=== PATIENT | female | born 1965 | race African-American/Black ===

== ENCOUNTER 2017-07-12 07:24 | Emergency (ER) | payer BC, MEDICAID ==
[~2017-07-12] VITALS: Ht 162.6 cm; Wt 114.0 kg
[~2017-07-12 07:24] MED LIST: ASPI-1159 PO; BENA20TA3 PO; CALC500T6 PO; GABA-529 PO; LORA2TAB2 PO; ZOLP5TAB2 PO
[2017-07-12] MEDS ORDERED: ONDANSETRON HCL 4MG/2ML VIAL IV ONE (08:00)
[2017-07-12] MEDS ORDERED: MORPHINE SULFATE 4 MG/ML CPJ (NOT FOR IM USE) IV ONE (08:00)
[2017-07-12 08:39] LABS: BASOPHILS % 0.3 % (0.0-2.0); EOSINOPHILS % 1.5 % (0.0-5.0); HEMATOCRIT. 30.7 % (36.0-48.0); HEMOGLOBIN. 9.8 g/dL (12.0-16.0); LYMPHOCYTES % 12.2 % (20.0-50.0); MEAN CORPUSCULAR VOLUME 97.1 fL (81.0-99.0); MEAN PLATELET VOLUME 9.6 fl (7.4-10.4); MONOCYTES % 6.9 % (2.0-8.0); NEUTROPHILS % 79.1 % (40.0-76.0); PLATELET 144 x1000/uL (130-400); RED BLOOD CELL COUNT 3.16 mill/uL (4.2-5.4); RED CELL DISTRIBUTION WIDTH 19.3 % (11.6-14.6)
[2017-07-12 08:42] LABS: CARBON DIOXIDE 25 mEq/L (21-32); CHLORIDE 104 mEq/L (98-107)
[2017-07-12] MEDS ORDERED: ONDANSETRON 4MG ODT PO ONE (10:00)
[2017-07-12] MEDS ORDERED: OXYCODONE HCL/ACETAMINOPHEN 5/325MG TABLET PO ONE (10:00)
[2017-07-12 13:50] VITALS: BP 150/52
== END 2017-07-12 14:42 | disposition home or self-care (01) ==
LOC: ER 07:35
DX: R10.31 Right lower quadrant pain (principal); I11.9 Hypertensive heart disease without heart failure; J44.9 Chronic obstructive pulmonary disease, unspecified; Z99.2 Dependence on renal dialysis; Z86.73 Personal history of transient ischemic attack (TIA), and cerebral infarction without residual deficits; Z79.82 Long term (current) use of aspirin; Z88.0 Allergy status to penicillin
CPT/HCPCS: 36415; 74176; 76705; 80053; 85025; 99285; Q0162; Z7610

== ENCOUNTER 2017-12-04 09:28 | Emergency (ER) | payer BC, MEDICAID ==
[~2017-12-04] VITALS: Ht 167.6 cm; Wt 90.0 kg
[2017-12-04] MEDS ORDERED: METHYLPREDNISOLONE SOD SUCC 125 MG/2 ML VIAL IV STA (09:46)
[2017-12-04] MEDS ORDERED: ALBUTEROL (0.083%) 2.5MG/3ML NEB HHN STA (09:46)
[2017-12-04] MEDS ORDERED: IPRATROPIUM BROMIDE (0.02%) 0.5MG/2.5ML NEB HHN STA (09:46)
[2017-12-04 10:12] LABS: BASOPHILS % 0.4 % (0.0-2.0); HEMATOCRIT. 37.6 % (36.0-48.0); HEMOGLOBIN. 12.2 g/dL (12.0-16.0); LYMPHOCYTES % 16.1 % (20.0-50.0); MEAN CORPUSCULAR HEMOGLOBIN 31.8 pg (28.0-32.0); MEAN PLATELET VOLUME 9.9 fl (7.4-10.4); MONOCYTES % 5.6 % (2.0-8.0); NEUTROPHILS % 76.9 % (40.0-76.0); PLATELET 142 x1000/uL (130-400); RED BLOOD CELL COUNT 3.84 mill/uL (4.2-5.4); RED CELL DISTRIBUTION WIDTH 20.1 % (11.6-14.6)
[2017-12-04 10:22] LABS: PROTHROMBIN TIME 10.3 sec (9.4-11.6)
[2017-12-04 10:30] LABS: CHLORIDE 101 mEq/L (98-107); TROPONIN I < 0.02 ng/mL (0.00-0.04)
[2017-12-04] MEDS ORDERED: MORPHINE SULFATE 2 MG/ML CPJ (NOT FOR IM USE) IV ONE (13:00)
[2017-12-04] MEDS ORDERED: MORPHINE SULFATE 4 MG/ML CPJ (NOT FOR IM USE) IV ONE (13:50)
[2017-12-04 15:45] VITALS: BP 137/75
== END 2017-12-04 16:03 | disposition home or self-care (01) ==
LOC: ER 09:38
DX: R05 Cough (principal); R09.89 Other specified symptoms and signs involving the circulatory and respiratory systems; J44.9 Chronic obstructive pulmonary disease, unspecified; I12.0 Hypertensive chronic kidney disease with stage 5 chronic kidney disease or end stage renal disease; N18.6 End stage renal disease; Z79.82 Long term (current) use of aspirin; Z86.73 Personal history of transient ischemic attack (TIA), and cerebral infarction without residual deficits; Z99.2 Dependence on renal dialysis; Z88.0 Allergy status to penicillin; Z88.8 Allergy status to other drugs, medicaments and biological substances
CPT/HCPCS: 36415; 71045; 80053; 83735; 83880; 84484; 85025; 85610; 93005; 94644; 96374; 99285; J2270; J2930; J7611; Z7610

== ENCOUNTER 2018-02-13 12:38 | Emergency (ER) | payer BC, MEDICAID ==
[~2018-02-13] VITALS: Ht 162.6 cm; Wt 76.0 kg
[2018-02-13] MEDS ORDERED: ACETAMINOPHEN 500MG TABLET PO ONE (13:45)
[2018-02-13 14:49] LABS: BASOPHILS % 0.2 % (0.0-2.0); EOSINOPHILS % 2.6 % (0.0-5.0); HEMATOCRIT. 36.8 % (36.0-48.0); HEMOGLOBIN. 12.5 g/dL (12.0-16.0); LYMPHOCYTES % 19.7 % (20.0-50.0); MEAN CORPUSCULAR HEMOGLOBIN 33.1 pg (28.0-32.0); MEAN CORPUSCULAR VOLUME 97.6 fL (81.0-99.0); MEAN PLATELET VOLUME 10.4 fl (7.4-10.4); MONOCYTES % 5.5 % (2.0-8.0); PLATELET 156 x1000/uL (130-400); RED BLOOD CELL COUNT 3.77 mill/uL (4.2-5.4)
[2018-02-13 20:00] VITALS: BP 162/75
== END 2018-02-13 20:12 | disposition home or self-care (01) ==
LOC: ER 12:47
DX: R44.1 Visual hallucinations (principal); I12.0 Hypertensive chronic kidney disease with stage 5 chronic kidney disease or end stage renal disease; N18.6 End stage renal disease; J44.9 Chronic obstructive pulmonary disease, unspecified; Z99.2 Dependence on renal dialysis; Z79.82 Long term (current) use of aspirin; Z88.0 Allergy status to penicillin
CPT/HCPCS: 36415; 71045; 80048; 85025; 99285

== ENCOUNTER 2018-07-15 23:10 | Inpatient (IN) | payer BC, MEDICAID ==
[~2018-07-15] VITALS: Ht 175.3 cm; Wt 133.6 kg
[~2018-07-15 23:10] MED LIST changes: +BENA20TA10 PO; -BENA20TA3 PO
[2018-07-16] MEDS ORDERED: MORPHINE SULFATE 4 MG/ML CPJ (NOT FOR IM USE) IV STA (01:33)
[2018-07-16] MEDS ORDERED: ASPIRIN 81MG TABLET PO ONE (01:45)
[2018-07-16 02:09] LABS: BASOPHILS % 0.9 % (0.0-2.0); EOSINOPHILS % 1.1 % (0.0-5.0); HEMATOCRIT. 34.7 % (36.0-48.0); HEMOGLOBIN. 11.2 g/dL (12.0-16.0); LYMPHOCYTES % 16.1 % (20.0-50.0); MEAN CORPUSCULAR HEMOGLOBIN 33.5 pg (28.0-32.0); MEAN CORPUSCULAR VOLUME 103.8 fL (81.0-99.0); MEAN PLATELET VOLUME 10.1 fl (7.4-10.4); MONOCYTES % 9.2 % (2.0-8.0); NEUTROPHILS % 72.7 % (40.0-76.0); PLATELET 181 x1000/uL (130-400); RED BLOOD CELL COUNT 3.34 mill/uL (4.2-5.4)
[2018-07-16 02:14] LABS: CHLORIDE 104 mEq/L (98-107)
[2018-07-16 02:20] LABS: ETHANOL BLOOD < 10 mg/dL
[2018-07-16 02:24] LABS: CREATINE KINASE 80 IU/L (26-192)
[2018-07-16 02:35] LABS: PROTHROMBIN TIME 10.3 sec (9.1-11.1)
[2018-07-16] MEDS ORDERED: MORPHINE SULFATE 2 MG/ML CPJ (NOT FOR IM USE) IV ONE (04:45)
[2018-07-16] MEDS ORDERED: MAGNESIUM/ALUMINUM HYDROXIDE/SIMETHICONE 30ML UDC PO PRN (07:45)
[2018-07-16] MEDS ORDERED: ACETAMINOPHEN 325MG TABLET PO PRN (07:45)
[2018-07-16] MEDS ORDERED: NITROGLYCERIN 0.4MG TABLET SL SL PRN (07:45)
[2018-07-16] MEDS ORDERED: CLONIDINE 0.1MG TABLET PO PRN (07:45)
[2018-07-16] MEDS ORDERED: TRAMADOL 50MG TABLET PO PRN (07:45)
[2018-07-16] MEDS ORDERED: DOCUSATE SODIUM 100MG CAPSULE PO PRN (07:45)
[2018-07-16] MEDS ORDERED: ONDANSETRON HCL 4MG/2ML INJ IV PRN (07:45)
[2018-07-16] MEDS ORDERED: GUAIFENESIN 200MG/10ML SUGAR FREE UDC PO PRN (07:45)
[2018-07-16] MEDS ORDERED: [UNRECOGNIZED DRUG - OTHER] PO (09:32)
[2018-07-16] MEDS ORDERED: B50 MT (09:34)
[2018-07-16] MEDS ORDERED: FAMO-135 MT (09:35)
[2018-07-16] MEDS ORDERED: SERT100T MT (09:46)
[2018-07-16] MEDS ORDERED: TRAZ-213 MT (09:46)
[2018-07-16] MEDS ORDERED: LOXA25CA MT (09:46)
[2018-07-16] MEDS: ASPIRIN 325MG EC TABLET PO SCH ×2 (09:49→09:59)
[2018-07-16] MEDS: FAMOTIDINE 20MG TABLET PO SCH ×2 (09:49→09:59)
[2018-07-16] MEDS: FOLIC ACID/VITAMIN B COMP W-C TABLET PO SCH ×2 (09:49→10:00)
[2018-07-16] MEDS: SEVELAMER CARBONATE 800 MG TABLET PO SCH ×3 (09:49→17:16)
[2018-07-16] MEDS: ENOXAPARIN 40MG/0.4ML SYR SUBCUT SCH ×2 (09:51→10:00)
[2018-07-16 10:05] VITALS: BP 113/49
[2018-07-16 12:00] VITALS: BP 91/53
[2018-07-16] MEDS: DIPHENHYDRAMINE 50MG/ML VIAL IV PRN ×2 (13:08→17:15)
[2018-07-16] MEDS ORDERED: HYDR-3280 MT (13:29)
[2018-07-16] MEDS: LORAZEPAM 2MG/ML CPJ IV PRN (14:35)
[2018-07-16 16:00] VITALS: BP 118/51
[2018-07-16 16:14] LABS: CREATINE KINASE 58 IU/L (26-192)
[2018-07-16 16:15] LABS: CREATINE KINASE MB FRACTION 1.6 ng/mL (0.5-3.6)
[2018-07-16] MEDS: DEXAMETHASONE 4MG/ML 1ML VIAL IV SCH ×2 (17:15→23:08)
[2018-07-16] MEDS ORDERED: DEXAMETHASONE 4MG/ML 1ML VIAL IV SCH (18:00)
[2018-07-16 20:00] VITALS: BP 134/63
[2018-07-16 23:38] LABS: CREATINE KINASE 55 IU/L (26-192)
[2018-07-16 23:39] LABS: CREATINE KINASE MB FRACTION 1.6 ng/mL (0.5-3.6)
[2018-07-17] VITALS: BP 125/65
[2018-07-17 04:00] VITALS: BP 111/55
[2018-07-17] MEDS: DEXAMETHASONE 4MG/ML 1ML VIAL IV SCH ×3 (06:45→17:57)
[2018-07-17 08:00] VITALS: BP 161/80
[2018-07-17] MEDS: FOLIC ACID/VITAMIN B COMP W-C TABLET PO SCH ×2 (08:59→09:00)
[2018-07-17] MEDS: DIPHENHYDRAMINE 50MG/ML VIAL IV PRN ×3 (08:59→19:44)
[2018-07-17] MEDS: SEVELAMER CARBONATE 800 MG TABLET PO SCH ×3 (09:10→17:43)
[2018-07-17 12:00] VITALS: BP 153/76
[2018-07-17] MEDS: LORAZEPAM 2MG/ML CPJ IV PRN ×2 (12:13→20:29)
[2018-07-17] MEDS ORDERED: BISACODYL 10MG SUPP PR NR (15:35)
[2018-07-17 16:00] VITALS: BP 163/77
[2018-07-17] MEDS: DOCUSATE SODIUM 100MG CAPSULE PO SCH ×2 (17:44→17:45)
[2018-07-17] MEDS: LACTULOSE 20G/30ML UDC PO SCH ×2 (17:44→20:06)
[2018-07-17] MEDS: MORPHINE SULFATE 4 MG/ML CPJ (NOT FOR IM USE) IV PRN (17:45)
[2018-07-17 20:00] VITALS: BP 136/62
[2018-07-17] MEDS: POLYETHYLENE GLYCOL 3350 (17GM) 1 DOSE PACK PO SCH (20:06)
[2018-07-18] VITALS: BP 153/69
[2018-07-18] MEDS: DIPHENHYDRAMINE 50MG/ML VIAL IV PRN ×4 (03:51→21:33)
[2018-07-18 04:00] VITALS: BP 109/61
[2018-07-18] MEDS: MORPHINE SULFATE 4 MG/ML CPJ (NOT FOR IM USE) IV PRN ×4 (04:20→23:10)
[2018-07-18] MEDS: DEXAMETHASONE 4MG/ML 1ML VIAL IV SCH ×4 (05:01→18:13)
[2018-07-18] MEDS: LORAZEPAM 2MG/ML CPJ IV PRN ×3 (05:01→21:44)
[2018-07-18 08:00] VITALS: BP 156/87
[2018-07-18] MEDS: BISACODYL 10MG SUPP PR SCH (08:56)
[2018-07-18] MEDS: FOLIC ACID/VITAMIN B COMP W-C TABLET PO SCH (08:56)
[2018-07-18] MEDS: LACTULOSE 20G/30ML UDC PO SCH ×4 (08:56→21:44)
[2018-07-18] MEDS: SEVELAMER CARBONATE 800 MG TABLET PO SCH ×3 (08:56→18:13)
[2018-07-18] MEDS: FAMOTIDINE 20MG TABLET PO SCH (08:56)
[2018-07-18] MEDS: DOCUSATE SODIUM 100MG CAPSULE PO SCH ×2 (08:56→18:13)
[2018-07-18] MEDS: ENOXAPARIN 40MG/0.4ML SYR SUBCUT SCH (08:57)
[2018-07-18 12:00] VITALS: BP 131/58
[2018-07-18 16:00] VITALS: BP 153/59
[2018-07-18 20:00] VITALS: BP 134/78
[2018-07-18] MEDS: POLYETHYLENE GLYCOL 3350 (17GM) 1 DOSE PACK PO SCH (21:31)
[2018-07-19] VITALS: BP 159/62
[2018-07-19 04:00] VITALS: BP 126/55
[2018-07-19] MEDS: DEXAMETHASONE 4MG/ML 1ML VIAL IV SCH ×4 (07:01→19:08)
[2018-07-19 07:26] LABS: HEMATOCRIT. 33.5 % (36.0-48.0); HEMOGLOBIN. 10.8 g/dL (12.0-16.0); MEAN CORPUSCULAR HEMOGLOBIN 33.7 pg (28.0-32.0); MEAN CORPUSCULAR VOLUME 104.6 fL (81.0-99.0); MEAN PLATELET VOLUME 10.7 fl (7.4-10.4); PLATELET 139 x1000/uL (130-400)
[2018-07-19 07:41] LABS: AMMONIA 39 uMol/L (<32)
[2018-07-19 08:00] VITALS: BP 140/76
[2018-07-19 08:12] LABS: VITAMIN B12 SERUM >2000 pg/mL pg/mL (211-911)
[2018-07-19 08:17] LABS: PHOSPHORUS 8.2 mg/dL (2.5-4.9)
[2018-07-19] MEDS: ENOXAPARIN 40MG/0.4ML SYR SUBCUT SCH (09:00)
[2018-07-19] MEDS: DIPHENHYDRAMINE 50MG/ML VIAL IV PRN (09:30)
[2018-07-19 10:00] LABS: FERRITIN 632 ng/mL (10-291)
[2018-07-19] MEDS: FOLIC ACID/VITAMIN B COMP W-C TABLET PO SCH (10:37)
[2018-07-19] MEDS: SEVELAMER CARBONATE 800 MG TABLET PO SCH ×3 (10:37→18:59)
[2018-07-19] MEDS: FAMOTIDINE 20MG TABLET PO SCH (10:38)
[2018-07-19] MEDS: DOCUSATE SODIUM 100MG CAPSULE PO SCH ×2 (10:38→18:59)
[2018-07-19] MEDS: BISACODYL 10MG SUPP PR SCH (10:38)
[2018-07-19] MEDS: MORPHINE SULFATE 4 MG/ML CPJ (NOT FOR IM USE) IV PRN ×2 (10:42→19:33)
[2018-07-19 12:00] VITALS: BP 106/73
[2018-07-19] MEDS ORDERED: HEPARIN 1000 UNITS/ML 10ML ONE (13:19)
[2018-07-19] MEDS: LACTULOSE 20G/30ML UDC PO SCH ×2 (14:00→21:17)
[2018-07-19] MEDS: LORAZEPAM 2MG/ML CPJ IV PRN ×2 (14:55→21:33)
[2018-07-19 16:00] VITALS: BP 138/74
[2018-07-19] MEDS ORDERED: HEPARIN SODIUM 1,000 UNIT/1ML VIAL IV NR (18:45)
[2018-07-19] MEDS: POLYETHYLENE GLYCOL 3350 (17GM) 1 DOSE PACK PO SCH (21:17)
[2018-07-19] MEDS: ZOLPIDEM TARTRATE 5MG TABLET PO PRN (23:58)
[2018-07-20] VITALS (15 sets, daily range): BP systolic 118–155; BP diastolic 54–94
[2018-07-20] MEDS: DIPHENHYDRAMINE 50MG/ML VIAL IV PRN ×2 (02:34→13:25)
[2018-07-20 06:13] LABS: PLATELET ESTIMATE NORMAL
[2018-07-20] MEDS: SEVELAMER CARBONATE 800 MG TABLET PO SCH ×3 (08:10→18:10)
[2018-07-20] MEDS: ENOXAPARIN 40MG/0.4ML SYR SUBCUT SCH (08:37)
[2018-07-20] MEDS: MORPHINE SULFATE 4 MG/ML CPJ (NOT FOR IM USE) IV PRN ×2 (08:38→18:14)
[2018-07-20] MEDS: BISACODYL 10MG SUPP PR SCH (08:38)
[2018-07-20] MEDS: DOCUSATE SODIUM 100MG CAPSULE PO SCH ×2 (08:39→17:00)
[2018-07-20] MEDS: FOLIC ACID/VITAMIN B COMP W-C TABLET PO SCH (08:39)
[2018-07-20] MEDS: FAMOTIDINE 20MG TABLET PO SCH (08:39)
[2018-07-20 09:55] LABS: AMMONIA 17 uMol/L (<32)
[2018-07-20 10:01] LABS: CHLORIDE 93 mEq/L (98-107)
[2018-07-20 10:11] LABS: T4 FREE 0.47 ng/dL (0.76-1.46)
[2018-07-20] MEDS ORDERED: SODIUM BICARBONATE 4% (2.4MEQ) 5ML VIAL IV ONE (10:35)
[2018-07-20] MEDS ORDERED: LIDOCAINE HCL 1% 20ML VIAL (Pyxis) INJ ONE (10:35)
[2018-07-20] MEDS ORDERED: IOHEXOL-300 100 ML BOTTLE ONE (10:35)
[2018-07-20] MEDS ORDERED: HEPARIN 1000 UNITS/ML 10ML ONE (10:36)
[2018-07-20] MEDS ORDERED: CLINDAMYCIN 600MG PREMIX 50 ML IV ONE (10:45)
[2018-07-20] MEDS ORDERED: FENTANYL CITRATE/PF 50MCG/ML 2ML VIAL ONE (10:58)
[2018-07-20] MEDS ORDERED: FENTANYL CITRATE/PF 50MCG/ML 2ML VIAL IV ONE (11:15)
[2018-07-20] MEDS: LORAZEPAM 2MG/ML CPJ IV PRN ×2 (12:06→21:15)
[2018-07-20] MEDS: LACTULOSE 20G/30ML UDC PO SCH (13:19)
[2018-07-20] MEDS: DEXAMETHASONE 4MG/ML 1ML VIAL IV SCH ×3 (13:20→18:00)
[2018-07-20] MEDS: POLYETHYLENE GLYCOL 3350 (17GM) 1 DOSE PACK PO SCH (21:15)
[2018-07-21] VITALS: BP 125/66
[2018-07-21] MEDS: DEXAMETHASONE 4MG/ML 1ML VIAL IV SCH ×4 (00:09→19:39)
[2018-07-21] MEDS: ZOLPIDEM TARTRATE 5MG TABLET PO PRN (00:09)
[2018-07-21 04:00] VITALS: BP 132/72
[2018-07-21 08:00] VITALS: BP 135/73
[2018-07-21] MEDS: BISACODYL 10MG SUPP PR SCH (09:00)
[2018-07-21] MEDS: ENOXAPARIN 40MG/0.4ML SYR SUBCUT SCH (09:00)
[2018-07-21] MEDS: MORPHINE SULFATE 4 MG/ML CPJ (NOT FOR IM USE) IV PRN (10:30)
[2018-07-21] MEDS: FAMOTIDINE 20MG TABLET PO SCH (10:31)
[2018-07-21] MEDS: DOCUSATE SODIUM 100MG CAPSULE PO SCH ×2 (10:31→19:39)
[2018-07-21] MEDS: FOLIC ACID/VITAMIN B COMP W-C TABLET PO SCH (10:31)
[2018-07-21] MEDS: LACTULOSE 20G/30ML UDC PO SCH (10:31)
[2018-07-21] MEDS: SEVELAMER CARBONATE 800 MG TABLET PO SCH ×3 (10:34→18:10)
[2018-07-21 12:00] VITALS: BP 131/46
[2018-07-21] MEDS: DIPHENHYDRAMINE 50MG/ML VIAL IV PRN ×2 (14:33→19:39)
[2018-07-21 16:00] VITALS: BP 129/75
[2018-07-21 20:00] VITALS: BP 127/60
[2018-07-21] MEDS: LORAZEPAM 2MG/ML CPJ IM PRN (20:58)
[2018-07-21] MEDS: POLYETHYLENE GLYCOL 3350 (17GM) 1 DOSE PACK PO SCH (20:58)
[2018-07-21] MEDS ORDERED: ZOLPIDEM TARTRATE 5MG TABLET PO PRN (23:00)
[2018-07-22] VITALS: BP 147/68
[2018-07-22] MEDS: DIPHENHYDRAMINE 50MG/ML VIAL IV PRN ×3 (00:42→20:06)
[2018-07-22] MEDS: DEXAMETHASONE 4MG/ML 1ML VIAL IV SCH ×4 (00:42→17:48)
[2018-07-22] MEDS: MORPHINE SULFATE 4 MG/ML CPJ (NOT FOR IM USE) IV PRN ×2 (03:17→11:28)
[2018-07-22 06:51] VITALS: BP 157/81
[2018-07-22 08:00] VITALS: BP 139/71
[2018-07-22] MEDS: LACTULOSE 20G/30ML UDC PO SCH ×2 (08:30→17:48)
[2018-07-22] MEDS: SEVELAMER CARBONATE 800 MG TABLET PO SCH ×3 (08:31→17:48)
[2018-07-22] MEDS: ENOXAPARIN 40MG/0.4ML SYR SUBCUT SCH (08:31)
[2018-07-22] MEDS: FOLIC ACID/VITAMIN B COMP W-C TABLET PO SCH (08:31)
[2018-07-22] MEDS: DOCUSATE SODIUM 100MG CAPSULE PO SCH ×2 (08:31→17:48)
[2018-07-22] MEDS: FAMOTIDINE 20MG TABLET PO SCH (08:31)
[2018-07-22] MEDS: BISACODYL 10MG SUPP PR SCH (08:34)
[2018-07-22] MEDS: LORAZEPAM 2MG/ML CPJ IM PRN (08:39)
[2018-07-22 12:00] VITALS: BP 153/70
[2018-07-22 16:00] VITALS: BP 149/64
[2018-07-22 20:00] VITALS: BP 122/66
[2018-07-22] MEDS: POLYETHYLENE GLYCOL 3350 (17GM) 1 DOSE PACK PO SCH (20:07)
[2018-07-23] VITALS: BP 122/74
[2018-07-23] MEDS: DEXAMETHASONE 4MG/ML 1ML VIAL IV SCH ×4 (00:29→18:14)
[2018-07-23 04:00] VITALS: BP 121/66
[2018-07-23 08:00] VITALS: BP 151/68
[2018-07-23] MEDS: LACTULOSE 20G/30ML UDC PO SCH ×2 (08:42→17:00)
[2018-07-23] MEDS: DOCUSATE SODIUM 100MG CAPSULE PO SCH ×2 (08:42→17:00)
[2018-07-23] MEDS: ENOXAPARIN 40MG/0.4ML SYR SUBCUT SCH (08:42)
[2018-07-23] MEDS: FOLIC ACID/VITAMIN B COMP W-C TABLET PO SCH (08:42)
[2018-07-23] MEDS: SEVELAMER CARBONATE 800 MG TABLET PO SCH ×3 (08:42→18:14)
[2018-07-23] MEDS: FAMOTIDINE 20MG TABLET PO SCH (08:42)
[2018-07-23] MEDS: MORPHINE SULFATE 4 MG/ML CPJ (NOT FOR IM USE) IV PRN ×3 (09:06→21:24)
[2018-07-23] MEDS: BISACODYL 10MG SUPP PR SCH ×2 (09:06→09:49)
[2018-07-23] MEDS: LEVOTHYROXINE SODIUM 25MCG TABLET PO SCH (10:59)
[2018-07-23 12:00] VITALS: BP 148/55
[2018-07-23 14:21] LABS: 25-HYDROXY VITAMIN D3 27 ng/mL (.)
[2018-07-23 16:00] VITALS: BP 122/50
[2018-07-23] MEDS: POLYETHYLENE GLYCOL 3350 (17GM) 1 DOSE PACK PO SCH (20:38)
[2018-07-23 23:56] VITALS: BP 154/50
[2018-07-24] MEDS: DEXAMETHASONE 4MG/ML 1ML VIAL IV SCH ×4 (00:49→19:33)
[2018-07-24 04:00] VITALS: BP 153/52
[2018-07-24] MEDS: MORPHINE SULFATE 4 MG/ML CPJ (NOT FOR IM USE) IV PRN ×3 (05:36→16:49)
[2018-07-24 08:00] VITALS: BP 131/78
[2018-07-24 08:25] LABS: FOLICLE STIMULATING HORMONE 5.8 mIU/mL (.); LUTEINIZING HORMONE 0.3 mIU/mL (.); PROLACTIN 272.8 ng/mL (4.8-23.3)
[2018-07-24] MEDS: BISACODYL 10MG SUPP PR SCH (09:00)
[2018-07-24] MEDS: ENOXAPARIN 40MG/0.4ML SYR SUBCUT SCH (09:41)
[2018-07-24] MEDS: FAMOTIDINE 20MG TABLET PO SCH (09:41)
[2018-07-24] MEDS: LEVOTHYROXINE SODIUM 25MCG TABLET PO SCH (09:41)
[2018-07-24] MEDS: LACTULOSE 20G/30ML UDC PO SCH ×2 (09:42→19:32)
[2018-07-24] MEDS: SEVELAMER CARBONATE 800 MG TABLET PO SCH ×3 (09:42→18:10)
[2018-07-24] MEDS: DOCUSATE SODIUM 100MG CAPSULE PO SCH ×2 (09:42→19:33)
[2018-07-24] MEDS: FOLIC ACID/VITAMIN B COMP W-C TABLET PO SCH (09:50)
[2018-07-24 12:00] VITALS: BP 170/79
[2018-07-24 16:00] VITALS: BP 138/51
[2018-07-24] MEDS ORDERED: HEPARIN SODIUM 1,000 UNIT/1ML VIAL IV NR (16:45)
[2018-07-24] MEDS: HYDROCODONE/ACETAMINOPHEN 10/325MG TABLET PO PRN (19:34)
[2018-07-24 20:00] VITALS: BP 146/53
[2018-07-24] MEDS: POLYETHYLENE GLYCOL 3350 (17GM) 1 DOSE PACK PO SCH (21:14)
[2018-07-24] MEDS: LORAZEPAM 2MG/ML CPJ IM PRN (21:14)
[2018-07-25] VITALS: BP 123/81
[2018-07-25] MEDS: DEXAMETHASONE 4MG/ML 1ML VIAL IV SCH ×4 (01:32→23:50)
[2018-07-25] MEDS: HYDROCODONE/ACETAMINOPHEN 10/325MG TABLET PO PRN (01:33)
[2018-07-25 04:00] VITALS: BP 132/78
[2018-07-25] MEDS: LEVOTHYROXINE SODIUM 25MCG TABLET PO SCH (06:41)
[2018-07-25 08:00] VITALS: BP 148/61
[2018-07-25] MEDS: SEVELAMER CARBONATE 800 MG TABLET PO SCH ×3 (10:11→18:18)
[2018-07-25] MEDS: LACTULOSE 20G/30ML UDC PO SCH ×2 (10:12→18:17)
[2018-07-25] MEDS: FOLIC ACID/VITAMIN B COMP W-C TABLET PO SCH (10:13)
[2018-07-25] MEDS: ENOXAPARIN 40MG/0.4ML SYR SUBCUT SCH (10:13)
[2018-07-25] MEDS: DOCUSATE SODIUM 100MG CAPSULE PO SCH ×2 (10:13→18:17)
[2018-07-25] MEDS: FAMOTIDINE 20MG TABLET PO SCH (10:14)
[2018-07-25] MEDS: BISACODYL 10MG SUPP PR SCH (10:15)
[2018-07-25 12:00] VITALS: BP 130/64
[2018-07-25] MEDS: DIPHENHYDRAMINE 50MG/ML VIAL IV PRN ×2 (13:19→19:43)
[2018-07-25 16:00] VITALS: BP 169/86
[2018-07-25] MEDS: POLYETHYLENE GLYCOL 3350 (17GM) 1 DOSE PACK PO SCH (19:44)
[2018-07-25] MEDS: MORPHINE SULFATE 4 MG/ML CPJ (NOT FOR IM USE) IV PRN (19:44)
[2018-07-25 20:00] VITALS: BP 142/72
[2018-07-25] MEDS: LORAZEPAM 2MG/ML CPJ IM PRN (23:55)
[2018-07-26] VITALS: BP 136/71
[2018-07-26 04:00] VITALS: BP 133/66
[2018-07-26] MEDS: MORPHINE SULFATE 4 MG/ML CPJ (NOT FOR IM USE) IV PRN ×2 (05:20→14:19)
[2018-07-26] MEDS: DEXAMETHASONE 4MG/ML 1ML VIAL IV SCH ×3 (05:20→16:41)
[2018-07-26] MEDS: LEVOTHYROXINE SODIUM 25MCG TABLET PO SCH (05:21)
[2018-07-26 08:00] VITALS: BP 112/70
[2018-07-26] MEDS: ENOXAPARIN 40MG/0.4ML SYR SUBCUT SCH (09:00)
[2018-07-26] MEDS: SEVELAMER CARBONATE 800 MG TABLET PO SCH ×3 (09:30→16:40)
[2018-07-26] MEDS: LACTULOSE 20G/30ML UDC PO SCH ×2 (09:30→16:41)
[2018-07-26] MEDS: DOCUSATE SODIUM 100MG CAPSULE PO SCH ×2 (09:30→16:41)
[2018-07-26] MEDS: BISACODYL 10MG SUPP PR SCH (09:30)
[2018-07-26] MEDS: FOLIC ACID/VITAMIN B COMP W-C TABLET PO SCH (09:30)
[2018-07-26] MEDS: FAMOTIDINE 20MG TABLET PO SCH (09:30)
[2018-07-26] MEDS ORDERED: NA PHOS,M-B/NA PHOS,DI-BA ENEMA 118ML PR ONE (10:00)
[2018-07-26] MEDS: SORBITOL 70% SOLN 30ML PO SCH ×2 (10:00→11:29)
[2018-07-26 12:00] VITALS: BP 147/57
[2018-07-26 13:04] LABS: HEMATOCRIT. 36.2 % (36.0-48.0); HEMOGLOBIN. 11.7 g/dL (12.0-16.0); MEAN CORPUSCULAR HEMOGLOBIN 32.4 pg (28.0-32.0); MEAN CORPUSCULAR VOLUME 100.3 fL (81.0-99.0); PLATELET 158 x1000/uL (130-400); RED BLOOD CELL COUNT 3.61 mill/uL (4.2-5.4); RED CELL DISTRIBUTION WIDTH 17.8 % (11.6-14.6)
[2018-07-26 13:15] LABS: INR 1.1; PROTHROMBIN TIME 10.9 sec (9.1-11.1)
[2018-07-26 13:17] LABS: PLATELET ESTIMATE NORMAL
[2018-07-26] MEDS: DIPHENHYDRAMINE 50MG/ML VIAL IV PRN ×2 (14:41→20:58)
[2018-07-26 16:00] VITALS: BP 156/63
[2018-07-26 20:13] VITALS: BP 133/58
[2018-07-26] MEDS ORDERED: MORPHINE SULFATE 4 MG/ML CPJ (NOT FOR IM USE) IV PRN (20:14)
[2018-07-26] MEDS: POLYETHYLENE GLYCOL 3350 (17GM) 1 DOSE PACK PO SCH (20:59)
[2018-07-27] VITALS (60 sets, daily range): BP systolic 97–166; BP diastolic 45–86
[2018-07-27] MEDS: DEXAMETHASONE 4MG/ML 1ML VIAL IV SCH ×4 (02:02→17:09)
[2018-07-27] MEDS: LORAZEPAM 2MG/ML CPJ IV PRN (02:02)
[2018-07-27] MEDS: LEVOTHYROXINE SODIUM 25MCG TABLET PO SCH (05:55)
[2018-07-27] MEDS: SEVELAMER CARBONATE 800 MG TABLET PO SCH ×3 (08:10→17:00)
[2018-07-27] MEDS ORDERED: THROMBIN (BOVINE) 5000 UNITS/VIAL TOP ONE ×2 (08:20→08:21)
[2018-07-27] MEDS ORDERED: NORMAL SALINE 0.9% 10 ML SYR ONE (08:20)
[2018-07-27] MEDS ORDERED: LIDOCAINE HCL/EPINEPHRINE 1%-EPI 1:100,000 20 ML VIAL ONE (08:20)
[2018-07-27] MEDS ORDERED: GELATIN SPONGE,COMPRESSED SZ 100 ONE (08:21)
[2018-07-27] MEDS ORDERED: BACITRACIN 50,000 UNITS/VIAL ONE (08:21)
[2018-07-27] MEDS: ENOXAPARIN 40MG/0.4ML SYR SUBCUT SCH (09:00)
[2018-07-27] MEDS: DOCUSATE SODIUM 100MG CAPSULE PO SCH ×2 (09:00→17:00)
[2018-07-27] MEDS: LACTULOSE 20G/30ML UDC PO SCH ×2 (09:00→17:00)
[2018-07-27] MEDS: BISACODYL 10MG SUPP PR SCH (09:00)
[2018-07-27] MEDS ORDERED: NEOSTIGMINE METHYLSULFATE 1MG/ML 10 ML VIAL ONE (09:08)
[2018-07-27] MEDS ORDERED: MIDAZOLAM HCL 2 MG/2 ML VIAL ONE (09:08)
[2018-07-27] MEDS ORDERED: GLYCOPYRROLATE 0.2 MG/ML 2ML VIAL ONE (09:08)
[2018-07-27] MEDS ORDERED: FENTANYL CITRATE/PF 50MCG/ML 2ML VIAL ONE (09:08)
[2018-07-27] MEDS ORDERED: ROCURONIUM BROMIDE 10MG/ML VIAL 5ML IV ONE (09:08)
[2018-07-27] MEDS ORDERED: SUCCINYLCHOLINE CHLORIDE 200MG/10ML IV ONE (09:35)
[2018-07-27] MEDS ORDERED: ETOMIDATE 2MG/ML 10ML VIAL IV ONE (09:35)
[2018-07-27] MEDS ORDERED: LABETALOL HCL 5MG/ML VIAL 20ML IV ONE (09:39)
[2018-07-27] MEDS ORDERED: CEFAZOLIN SODIUM 1000MG/VIAL ONE (10:05)
[2018-07-27] MEDS ORDERED: DEXAMETHASONE 4MG/ML 1ML VIAL ONE ×2 (10:06→10:42)
[2018-07-27] MEDS ORDERED: FENTANYL CITRATE/PF 50MCG/ML 2ML VIAL IV PRN (10:30)
[2018-07-27] MEDS ORDERED: HYDROMORPHONE HCL/PF 2MG/ML CPJ IV PRN (10:30)
[2018-07-27] MEDS ORDERED: MORPHINE SULFATE 4 MG/ML CPJ (NOT FOR IM USE) IV PRN (10:30)
[2018-07-27] MEDS ORDERED: ONDANSETRON HCL 4MG/2ML INJ IV PRN (10:30)
[2018-07-27] MEDS ORDERED: MEPERIDINE HCL/PF 25MG/ML CPJ IV PRN (10:30)
[2018-07-27] MEDS ORDERED: NICARDIPINE 100 MG in SODIUM CHLORIDE 0.9% 60 ML IV PRN (11:00)
[2018-07-27] MEDS: FOLIC ACID/VITAMIN B COMP W-C TABLET PO SCH (11:32)
[2018-07-27] MEDS: DEXT 5%/0.9% NACL 1,000 ML IV SCH (11:32)
[2018-07-27] MEDS: FAMOTIDINE 20MG TABLET PO SCH (11:32)
[2018-07-27] MEDS: PROPOFOL 10MG/ML 100ML 100 ML IV PRN ×3 (11:40→20:29)
[2018-07-27 13:54] LABS: BG BASE EXCESS -9.4 mmol/L (-2.0-2.0); BG CARBOXYHEMOGLOBIN 0.5 % (0.5-1.5); BG DEOXYHEMOGLOBIN 2.1 % (0.0-5.0); BG FRACTION INSPIRED OXYGEN 60; BG OXYGEN SATURATION 97.9 % (92.0-98.5); BG OXYHEMOGLOBIN 97.4 % (94.0-97.0); BG PCO2 27.9 mmHg (35.0-45.0); BG PEEP (cmH2O) 0 cmH2O; BG PH 7.347 (7.350-7.450); BG PO2 117.3 mmHg (75.0-100.0); BG SAMPLE SITE LEFT RADIAL; BG TIDAL VOLUME(mL) 600 mL; BG TOTAL HEMOGLOBIN 11.2 g/dL (12.0-18.0); BG VENT MODE VENT - A/C; BG VENT RATE 14 set
[2018-07-27] MEDS: BUDESONIDE 0.5MG/2ML NEB HHN SCH ×2 (14:39→20:46)
[2018-07-27] MEDS: POLYETHYLENE GLYCOL 3350 (17GM) 1 DOSE PACK PO SCH (20:29)
[2018-07-27] MEDS: MORPHINE SULFATE 4 MG/ML CPJ (NOT FOR IM USE) IV PRN (20:53)
[2018-07-28] VITALS (94 sets, daily range): BP systolic 89–139; BP diastolic 45–96
[2018-07-28] MEDS: DEXAMETHASONE 4MG/ML 1ML VIAL IV SCH ×5 (00:21→23:29)
[2018-07-28] MEDS: PROPOFOL 10MG/ML 100ML 100 ML IV PRN ×8 (01:19→22:34)
[2018-07-28] MEDS: MORPHINE SULFATE 4 MG/ML CPJ (NOT FOR IM USE) IV PRN ×3 (05:06→22:06)
[2018-07-28] MEDS: DEXT 5%/0.9% NACL 1,000 ML IV SCH (05:07)
[2018-07-28 06:18] LABS: HEMATOCRIT. 32.6 % (36.0-48.0); HEMOGLOBIN. 10.7 g/dL (12.0-16.0); MEAN CORPUSCULAR HEMOGLOBIN 33.2 pg (28.0-32.0); MEAN CORPUSCULAR VOLUME 101.4 fL (81.0-99.0); PLATELET 132 x1000/uL (130-400); RED BLOOD CELL COUNT 3.22 mill/uL (4.2-5.4)
[2018-07-28] MEDS: SEVELAMER CARBONATE 800 MG TABLET PO SCH ×3 (07:00→16:48)
[2018-07-28] MEDS: BUDESONIDE 0.5MG/2ML NEB HHN SCH ×2 (07:24→19:40)
[2018-07-28] MEDS: IPRATROPIUM/ALBUTEROL 0.5-3(2.5)MG/3ML NEB INH PRN ×4 (07:24→23:41)
[2018-07-28 07:27] LABS: BG CARBOXYHEMOGLOBIN 0.1 % (0.5-1.5); BG DEOXYHEMOGLOBIN 3.5 % (0.0-5.0); BG FRACTION INSPIRED OXYGEN 40; BG HCO3 ACT 18.9 mmol/L (22.0-26.0); BG METHEMOGLOBIN 0.3 % (0.0-1.5); BG OXYGEN SATURATION 96.5 % (92.0-98.5); BG OXYHEMOGLOBIN 96.1 % (94.0-97.0); BG PCO2 27.5 mmHg (35.0-45.0); BG PH 7.454 (7.350-7.450); BG PO2 91.9 mmHg (75.0-100.0); BG SAMPLE SITE RIGHT BRACHIAL; BG TIDAL VOLUME(mL) 600 mL; BG TOTAL HEMOGLOBIN 10.7 g/dL (12.0-18.0); BG VENT MODE VENT - A/C; BG VENT RATE 14 set
[2018-07-28] MEDS: DOCUSATE SODIUM 100MG CAPSULE PO SCH ×2 (09:00→16:48)
[2018-07-28] MEDS: FOLIC ACID/VITAMIN B COMP W-C TABLET PO SCH (09:00)
[2018-07-28] MEDS ORDERED: CEFAZOLIN SODIUM 1000MG/VIAL IV SCH (09:00)
[2018-07-28] MEDS: FAMOTIDINE 20MG TABLET PO SCH (09:00)
[2018-07-28] MEDS: LACTULOSE 20G/30ML UDC PO SCH ×2 (09:00→16:48)
[2018-07-28] MEDS: ENOXAPARIN 40MG/0.4ML SYR SUBCUT SCH (09:36)
[2018-07-28] MEDS: BISACODYL 10MG SUPP PR SCH (09:37)
[2018-07-28] MEDS: CEFAZOLIN 1000MG PREMIX 50 ML IV SCH (09:37)
[2018-07-28] MEDS: PANTOPRAZOLE SODIUM 40 MG/VIAL IV SCH (09:37)
[2018-07-28] MEDS ORDERED: HEPARIN SODIUM 1,000 UNIT/1ML VIAL IV NR ×2 (11:45)
[2018-07-28] MEDS: LEVOTHYROXINE SODIUM 100 MCG/ VIAL IV SCH (12:01)
[2018-07-28] MEDS ORDERED: LIDOCAINE HCL/PF 1% 2ML VIAL ONE (13:11)
[2018-07-28 13:41] LABS: PLATELET ESTIMATE NORMAL
[2018-07-28] MEDS: POLYETHYLENE GLYCOL 3350 (17GM) 1 DOSE PACK PO SCH (21:00)
[2018-07-29] VITALS (65 sets, daily range): BP systolic 91–144; BP diastolic 23–71
[2018-07-29] MEDS: DEXT 5%/0.9% NACL 1,000 ML IV SCH ×2 (01:25→22:01)
[2018-07-29] MEDS: PROPOFOL 10MG/ML 100ML 100 ML IV PRN ×3 (01:25→06:20)
[2018-07-29] MEDS: IPRATROPIUM/ALBUTEROL 0.5-3(2.5)MG/3ML NEB INH PRN ×5 (04:03→19:52)
[2018-07-29] MEDS: MORPHINE SULFATE 4 MG/ML CPJ (NOT FOR IM USE) IV PRN ×4 (04:51→22:01)
[2018-07-29] MEDS: DEXAMETHASONE 4MG/ML 1ML VIAL IV SCH ×3 (05:10→17:42)
[2018-07-29] MEDS: SEVELAMER CARBONATE 800 MG TABLET PO SCH ×3 (06:11→16:47)
[2018-07-29] MEDS: DOCUSATE SODIUM 100MG CAPSULE PO SCH ×2 (09:00→16:47)
[2018-07-29] MEDS: FOLIC ACID/VITAMIN B COMP W-C TABLET PO SCH (09:00)
[2018-07-29] MEDS: FAMOTIDINE 20MG TABLET PO SCH (09:00)
[2018-07-29] MEDS: LACTULOSE 20G/30ML UDC PO SCH ×2 (09:00→16:47)
[2018-07-29] MEDS: BUDESONIDE 0.5MG/2ML NEB HHN SCH ×2 (09:16→19:53)
[2018-07-29] MEDS: CEFAZOLIN 1000MG PREMIX 50 ML IV SCH (10:11)
[2018-07-29] MEDS: BISACODYL 10MG SUPP PR SCH (10:12)
[2018-07-29] MEDS: ENOXAPARIN 40MG/0.4ML SYR SUBCUT SCH (10:12)
[2018-07-29] MEDS: PANTOPRAZOLE SODIUM 40 MG/VIAL IV SCH (10:12)
[2018-07-29] MEDS: LEVOTHYROXINE SODIUM 100 MCG/ VIAL IV SCH (10:13)
[2018-07-29 12:23] LABS: BG CARBOXYHEMOGLOBIN 0.5 % (0.5-1.5); BG DEOXYHEMOGLOBIN 1.5 % (0.0-5.0); BG FRACTION INSPIRED OXYGEN 35; BG HCO3 ACT 20.4 mmol/L (22.0-26.0); BG METHEMOGLOBIN 0.2 % (0.0-1.5); BG OXYGEN SATURATION 98.5 % (92.0-98.5); BG OXYHEMOGLOBIN 97.8 % (94.0-97.0); BG PCO2 31.1 mmHg (35.0-45.0); BG PH 7.435 (7.350-7.450); BG PO2 136.7 mmHg (75.0-100.0); BG PRESSURE SUPPORT 8; BG SAMPLE SITE RIGHT RADIAL; BG TOTAL HEMOGLOBIN 11.2 g/dL (12.0-18.0); BG VENT MODE VENT - CPAP
[2018-07-29] MEDS: POLYETHYLENE GLYCOL 3350 (17GM) 1 DOSE PACK PO SCH (20:20)
[2018-07-30] VITALS (58 sets, daily range): BP systolic 111–170; BP diastolic 26–87
[2018-07-30] MEDS: DEXAMETHASONE 4MG/ML 1ML VIAL IV SCH ×4 (00:17→17:16)
[2018-07-30] MEDS: IPRATROPIUM/ALBUTEROL 0.5-3(2.5)MG/3ML NEB INH PRN ×5 (04:10→20:28)
[2018-07-30] MEDS: MORPHINE SULFATE 4 MG/ML CPJ (NOT FOR IM USE) IV PRN ×5 (04:12→21:35)
[2018-07-30] MEDS: SEVELAMER CARBONATE 800 MG TABLET PO SCH ×3 (06:10→17:17)
[2018-07-30] MEDS: BISACODYL 10MG SUPP PR SCH ×2 (09:00→12:59)
[2018-07-30] MEDS: LACTULOSE 20G/30ML UDC PO SCH ×2 (09:00→17:17)
[2018-07-30] MEDS: DOCUSATE SODIUM 100MG CAPSULE PO SCH ×2 (09:00→17:17)
[2018-07-30] MEDS: FOLIC ACID/VITAMIN B COMP W-C TABLET PO SCH ×2 (09:00→09:07)
[2018-07-30] MEDS: PANTOPRAZOLE SODIUM 40 MG/VIAL IV SCH (09:07)
[2018-07-30] MEDS: FAMOTIDINE 20MG TABLET PO SCH (09:07)
[2018-07-30] MEDS: ENOXAPARIN 40MG/0.4ML SYR SUBCUT SCH (09:14)
[2018-07-30] MEDS: LEVOTHYROXINE SODIUM 100 MCG/ VIAL IV SCH (09:21)
[2018-07-30] MEDS: BUDESONIDE 0.5MG/2ML NEB HHN SCH ×2 (09:39→20:29)
[2018-07-30 12:37] LABS: HEMATOCRIT. 30.5 % (36.0-48.0); HEMOGLOBIN. 9.8 g/dL (12.0-16.0); MEAN CORPUSCULAR VOLUME 102.9 fL (81.0-99.0); MEAN PLATELET VOLUME 11.3 fl (7.4-10.4); PLATELET 112 x1000/uL (130-400); RED BLOOD CELL COUNT 2.97 mill/uL (4.2-5.4)
[2018-07-30 13:13] LABS: PLATELET ESTIMATE SLIGHTLY DECREASED
[2018-07-30] MEDS: DEXT 5%/0.9% NACL 1,000 ML IV SCH (17:19)
[2018-07-30] MEDS: POLYETHYLENE GLYCOL 3350 (17GM) 1 DOSE PACK PO SCH (21:36)
[2018-07-31] VITALS (12 sets, daily range): BP systolic 107–153; BP diastolic 48–79
[2018-07-31] MEDS: DEXAMETHASONE 4MG/ML 1ML VIAL IV SCH ×4 (00:10→17:24)
[2018-07-31] MEDS: MORPHINE SULFATE 4 MG/ML CPJ (NOT FOR IM USE) IV PRN ×4 (02:24→17:22)
[2018-07-31] MEDS: DIPHENHYDRAMINE 50MG/ML VIAL IV PRN ×3 (03:22→20:42)
[2018-07-31] MEDS: LORAZEPAM 2MG/ML CPJ IV PRN ×2 (06:39→20:47)
[2018-07-31] MEDS: BUDESONIDE 0.5MG/2ML NEB HHN SCH ×2 (08:39→21:55)
[2018-07-31] MEDS: IPRATROPIUM/ALBUTEROL 0.5-3(2.5)MG/3ML NEB INH PRN ×3 (08:40→17:28)
[2018-07-31] MEDS: FAMOTIDINE 20MG TABLET PO SCH (08:44)
[2018-07-31] MEDS: DOCUSATE SODIUM 100MG CAPSULE PO SCH ×2 (08:44→17:17)
[2018-07-31] MEDS: FOLIC ACID/VITAMIN B COMP W-C TABLET PO SCH (08:44)
[2018-07-31] MEDS: SEVELAMER CARBONATE 800 MG TABLET PO SCH ×3 (08:45→17:17)
[2018-07-31] MEDS: LACTULOSE 20G/30ML UDC PO SCH ×3 (08:45→20:42)
[2018-07-31] MEDS: LEVOTHYROXINE SODIUM 100 MCG/ VIAL IV SCH (08:49)
[2018-07-31] MEDS: PANTOPRAZOLE SODIUM 40 MG/VIAL IV SCH (08:53)
[2018-07-31] MEDS: ENOXAPARIN 40MG/0.4ML SYR SUBCUT SCH (09:06)
[2018-07-31] MEDS: DEXT 5%/0.9% NACL 1,000 ML IV SCH (12:45)
[2018-07-31] MEDS ORDERED: BISACODYL 10MG SUPP PR PRN (14:15)
[2018-07-31] MEDS ORDERED: NA PHOS,M-B/NA PHOS,DI-BA ENEMA 118ML PR NR (14:15)
[2018-07-31] MEDS ORDERED: ERGOCALCIFEROL 50000UNITS CAPSULE PO SCH (16:00)
[2018-07-31] MEDS: POLYETHYLENE GLYCOL 3350 (17GM) 1 DOSE PACK PO SCH (20:42)
[2018-07-31] MEDS ORDERED: POLYETHYLENE GLYCOL 3350 (17GM) 1 DOSE PACK PO SCH (21:00)
[2018-08-01] VITALS (7 sets, daily range): BP systolic 20–176; BP diastolic 62–85
[2018-08-01] MEDS: DIPHENHYDRAMINE 50MG/ML VIAL IV PRN ×3 (00:59→09:36)
[2018-08-01] MEDS: DEXAMETHASONE 4MG/ML 1ML VIAL IV SCH ×4 (00:59→18:48)
[2018-08-01] MEDS: MORPHINE SULFATE 4 MG/ML CPJ (NOT FOR IM USE) IV PRN ×2 (00:59→05:38)
[2018-08-01] MEDS: BUDESONIDE 0.5MG/2ML NEB HHN SCH ×2 (08:23→20:04)
[2018-08-01] MEDS: IPRATROPIUM/ALBUTEROL 0.5-3(2.5)MG/3ML NEB INH PRN (08:24)
[2018-08-01] MEDS ORDERED: NA PHOS,M-B/NA PHOS,DI-BA ENEMA 118ML PR PRN (09:00)
[2018-08-01] MEDS: ENOXAPARIN 40MG/0.4ML SYR SUBCUT SCH (09:00)
[2018-08-01] MEDS: LEVOTHYROXINE SODIUM 100 MCG/ VIAL IV SCH (09:17)
[2018-08-01] MEDS: FOLIC ACID/VITAMIN B COMP W-C TABLET PO SCH (09:19)
[2018-08-01] MEDS: FAMOTIDINE 20MG TABLET PO SCH (09:20)
[2018-08-01] MEDS: DOCUSATE SODIUM 100MG CAPSULE PO SCH ×2 (09:20→18:48)
[2018-08-01] MEDS: LACTULOSE 20G/30ML UDC PO SCH ×3 (09:21→18:48)
[2018-08-01] MEDS: DEXT 5%/0.9% NACL 1,000 ML IV SCH (09:25)
[2018-08-01] MEDS: SEVELAMER CARBONATE 800 MG TABLET PO SCH ×3 (09:36→18:48)
[2018-08-01] MEDS ORDERED: MORPHINE SULFATE 4 MG/ML CPJ (NOT FOR IM USE) IV PRN (10:45)
[2018-08-01] MEDS ORDERED: EPOETIN ALFA 4000UNITS/ML VIAL SUBCUT SCH (21:00)
[2018-08-01] MEDS ORDERED: ATORVASTATIN CALCIUM 10MG TABLET PO SCH (21:00)
== END 2018-08-01 21:00 | DRG 471 ==
LOC: ER 23:30 → 7WST 07-16 04:41 → EDBEDREQTM 07-16 04:45 → EDBEDREQ 07-16 04:45 → ENRESERV 07-16 07:10 → MICUSO 07-27 11:17 → 6EST 07-31 02:09
PROVIDERS: ADMIT Internal Medicine; ATTEND Internal Medicine
PROC: 5A1D70Z Performance of Urinary Filtration, Intermittent, Less than 6 Hours Per Day (ICD-10-PCS; 2018-07-17)
PROC: 06HY33Z Insertion of Infusion Device into Lower Vein, Percutaneous Approach (ICD-10-PCS; 2018-07-19)
PROC: B54BZZA Ultrasonography of Right Lower Extremity Veins, Guidance (ICD-10-PCS; 2018-07-19)
PROC: 5A1D70Z Performance of Urinary Filtration, Intermittent, Less than 6 Hours Per Day (ICD-10-PCS; 2018-07-19)
PROC: 067N3ZZ Dilation of Left Femoral Vein, Percutaneous Approach (ICD-10-PCS; 2018-07-20)
PROC: B51W1ZZ Fluoroscopy of Dialysis Shunt/Fistula using Low Osmolar Contrast (ICD-10-PCS; 2018-07-20)
PROC: B51C1ZA Fluoroscopy of Left Lower Extremity Veins using Low Osmolar Contrast, Guidance (ICD-10-PCS; 2018-07-20)
PROC: 5A1D70Z Performance of Urinary Filtration, Intermittent, Less than 6 Hours Per Day (ICD-10-PCS; 2018-07-20)
PROC: 5A1D70Z Performance of Urinary Filtration, Intermittent, Less than 6 Hours Per Day (ICD-10-PCS; 2018-07-22)
PROC: 5A1D70Z Performance of Urinary Filtration, Intermittent, Less than 6 Hours Per Day (ICD-10-PCS; 2018-07-24)
PROC: 5A1D70Z Performance of Urinary Filtration, Intermittent, Less than 6 Hours Per Day (ICD-10-PCS; 2018-07-26)
PROC: 0RT30ZZ Resection of Cervical Vertebral Disc, Open Approach (ICD-10-PCS; 2018-07-27)
PROC: 5A1945Z Respiratory Ventilation, 24-96 Consecutive Hours (ICD-10-PCS; 2018-07-27)
PROC: 5A1D70Z Performance of Urinary Filtration, Intermittent, Less than 6 Hours Per Day (ICD-10-PCS; 2018-07-27)
PROC: 0RG20K0 Fusion of 2 or more Cervical Vertebral Joints with Nonautologous Tissue Substitute, Anterior Approach, Anterior Column, Open Approach (ICD-10-PCS; principal; 2018-07-27 10:00)
PROC: 5A1D70Z Performance of Urinary Filtration, Intermittent, Less than 6 Hours Per Day (ICD-10-PCS; 2018-07-28)
PROC: 5A1D70Z Performance of Urinary Filtration, Intermittent, Less than 6 Hours Per Day (ICD-10-PCS; 2018-07-30)
DX: M47.12 Other spondylosis with myelopathy, cervical region (principal); N18.6 End stage renal disease; G82.50 Quadriplegia, unspecified; J96.00 Acute respiratory failure, unspecified whether with hypoxia or hypercapnia; T82.818A Embolism due to vascular prosthetic devices, implants and grafts, initial encounter; E44.1 Mild protein-calorie malnutrition; I13.2 Hypertensive heart and chronic kidney disease with heart failure and with stage 5 chronic kidney disease, or end stage renal disease; J44.1 Chronic obstructive pulmonary disease with (acute) exacerbation; Z68.41 Body mass index [BMI] 40.0-44.9, adult; E22.1 Hyperprolactinemia; K59.2 Neurogenic bowel, not elsewhere classified; E23.0 Hypopituitarism; I69.354 Hemiplegia and hemiparesis following cerebral infarction affecting left non-dominant side; G95.20 Unspecified cord compression; M50.021 Cervical disc disorder at C4-C5 level with myelopathy; M50.022 Cervical disc disorder at C5-C6 level with myelopathy; M50.023 Cervical disc disorder at C6-C7 level with myelopathy; T82.858A Stenosis of other vascular prosthetic devices, implants and grafts, initial encounter; M48.02 Spinal stenosis, cervical region; E11.51 Type 2 diabetes mellitus with diabetic peripheral angiopathy without gangrene; H40.9 Unspecified glaucoma; D69.6 Thrombocytopenia, unspecified; E11.65 Type 2 diabetes mellitus with hyperglycemia; D72.829 Elevated white blood cell count, unspecified; E55.9 Vitamin D deficiency, unspecified; R13.10 Dysphagia, unspecified; E78.1 Pure hyperglyceridemia; Z96.653 Presence of artificial knee joint, bilateral; E11.40 Type 2 diabetes mellitus with diabetic neuropathy, unspecified; I27.20 Pulmonary hypertension, unspecified; K59.00 Constipation, unspecified; H54.8 Legal blindness, as defined in USA; Y83.2 Surgical operation with anastomosis, bypass or graft as the cause of abnormal reaction of the patient, or of later complication, without mention of misadventure at the time of the procedure; E11.22 Type 2 diabetes mellitus with diabetic chronic kidney disease; E66.01 Morbid (severe) obesity due to excess calories; I50.9 Heart failure, unspecified; D63.8 Anemia in other chronic diseases classified elsewhere; Z99.2 Dependence on renal dialysis; Z88.0 Allergy status to penicillin; Z79.82 Long term (current) use of aspirin; Z79.899 Other long term (current) drug therapy; Z71.3 Dietary counseling and surveillance; Z78.1 Physical restraint status; Y92.89 Other specified places as the place of occurrence of the external cause
CPT/HCPCS: 36415; 36556; 36600; 36902; 70551; 71045; 72040; 72141; 76937; 80048; 80061; 82140; 82306; 82375; 82550; 82553; 82607; 82728; 82746; 82805; 83001; 83002; 83036; 83540; 83550; 83605; 83721; 83735; 83880; 84100; 84146; 84439; 84443; 84478; 84481; 84484; 84630; 85007; 85027; 86376; 86850; 86900; 86920; 88304; 88311; 92523; 92610; 93005; 93306; 93970; 94003; 94640; 95925; 95926; 95928; 95929; 96374; 96375; 97110; 97163; 97166; 97530; 99291; A4216; C1713; C1725; C1752; C1769; C9113; G0482; J0330; J0690; J0885; J1100; J1200; J1644; J1650; J2060; J2250; J2270; J2405; J2704; J2710; J3010; J3490; J7030; J7040; J7042; J7050; J7620; J7626; L0172; Q9967

== ENCOUNTER 2022-05-07 18:23 | Inpatient (IN) | payer BC, MEDICAID ==
[~2022-05-07] VITALS: Ht 175.3 cm; Wt 123.9 kg
[~2022-05-07 18:23] MED LIST changes: +AMLO2.5T45 PO; -ASPI-1159 PO; +ASPI-1497 PO; +B50 MT; -BENA20TA10 PO; +FAMO-135 MT; -GABA-529 PO; +GABA-532 PO; +HYDR-4350 MT; +LOXA25CA MT; +SERT100T MT; -ZOLP5TAB2 PO
[2022-05-07 21:07] LABS: BASOPHILS % 0.6 % (0.0-2.0); EOSINOPHILS % 5.6 % (0.0-5.0); HEMATOCRIT. 29.5 % (36.0-48.0); HEMOGLOBIN. 9.3 g/dL (12.0-16.0); LYMPHOCYTES % 24.9 % (20.0-50.0); MEAN CORPUSCULAR HEMOGLOBIN 30.5 pg (28.0-32.0); MEAN CORPUSCULAR VOLUME 96.3 fL (81.0-99.0); MEAN PLATELET VOLUME 9.5 fl (7.4-10.4); MONOCYTES % 12.2 % (2.0-8.0); NEUTROPHILS % 56.7 % (40.0-76.0); PLATELET 263 x1000/uL (130-400); RED BLOOD CELL COUNT 3.06 mill/uL (4.2-5.4); RED CELL DISTRIBUTION WIDTH 21.9 % (11.6-14.6)
[2022-05-07 21:14] LABS: CHLORIDE 104 mEq/L (98-107)
[2022-05-07 21:17] LABS: INR 1.1; PROTHROMBIN TIME 11.4 sec (9.6-11.0)
[2022-05-07] MEDS ORDERED: MORPHINE SULFATE 4 MG/ML CPJ (NOT FOR IM USE) IV ONE ×2 (21:45→23:45)
[2022-05-07] MEDS ORDERED: LABETALOL HCL VIAL 20 MG/4 ML VIAL IV ONE (21:45)
[2022-05-07] MEDS ORDERED: LABETALOL 5MG/ML SYR 20 MG/4 ML SYRINGE IV NR (22:00)
[2022-05-08] MEDS ORDERED: HYDRALAZINE 20MG/ML VIAL IV PRN
[2022-05-08] MEDS ORDERED: ZOLPIDEM TARTRATE 5MG TABLET PO PRN
[2022-05-08] MEDS ORDERED: ACETAMINOPHEN 325MG TABLET PO PRN
[2022-05-08] MEDS ORDERED: ONDANSETRON HCL 4MG/2ML INJ IV PRN
[2022-05-08] MEDS ORDERED: CLONIDINE 0.1MG TABLET PO PRN
[2022-05-08] MEDS ORDERED: MAGNESIUM/ALUMINUM HYDROXIDE/SIMETHICONE 30ML UDC PO PRN
[2022-05-08] MEDS ORDERED: NALOXONE HCL 0.4MG/ML VIAL IV PRN (00:30)
[2022-05-08] MEDS: DIPHENHYDRAMINE 50MG/ML VIAL IV PRN ×3 (00:39→20:23)
[2022-05-08] MEDS ORDERED: MAGNESIUM HYDROXIDE 400MG/5ML 30ML UDC PO PRN (01:30)
[2022-05-08 01:50] VITALS: BP 146/75
[2022-05-08 04:00] VITALS: BP 159/78
[2022-05-08] MEDS: SODIUM CHLORIDE 0.9% INJ 3ML FLUSH IVF SCH ×3 (06:00→22:00)
[2022-05-08] MEDS ORDERED: TRAZ-252 PO (06:22)
[2022-05-08] MEDS ORDERED: SERT50TA PO (06:22)
[2022-05-08] MEDS ORDERED: AMLO10TA80 PO (06:22)
[2022-05-08 08:00] VITALS: BP 162/54
[2022-05-08] MEDS: OMEPRAZOLE 20MG CAPSULE EXTENDED RELEASE PO SCH (08:05)
[2022-05-08] MEDS: DOCUSATE SODIUM 100MG CAPSULE PO SCH ×3 (08:31→18:33)
[2022-05-08] MEDS: ASPIRIN 81MG EC TABLET PO SCH (08:32)
[2022-05-08] MEDS: AMLODIPINE 2.5MG TABLET PO SCH (08:33)
[2022-05-08] MEDS: MORPHINE SULFATE 4 MG/ML CPJ (NOT FOR IM USE) IV PRN ×2 (08:33→21:45)
[2022-05-08] MEDS ORDERED: LIDOCAINE HCL/PF 1% 10 MG/ML 5ML VIAL ONE (10:37)
[2022-05-08] MEDS: SERTRALINE HCL 50MG TABLET PO SCH (12:55)
[2022-05-08 13:00] VITALS: BP 175/91
[2022-05-08 16:00] VITALS: BP 130/40
[2022-05-08 17:06] LABS: HEPATITIS B SURFACE ANTIGEN NEGATIVE
[2022-05-08 20:00] VITALS: BP 145/45
[2022-05-08] MEDS: EPOETIN ALFA-EPBX 10,000 UNIT/ML VIAL SUBCUT SCH (20:23)
[2022-05-09] VITALS (7 sets, daily range): BP systolic 117–152; BP diastolic 26–88
[2022-05-09] MEDS: DIPHENHYDRAMINE 50MG/ML VIAL IV PRN ×3 (00:49→19:43)
[2022-05-09] MEDS: MORPHINE SULFATE 4 MG/ML CPJ (NOT FOR IM USE) IV PRN ×4 (04:22→22:29)
[2022-05-09] MEDS: SODIUM CHLORIDE 0.9% INJ 3ML FLUSH IVF SCH ×3 (05:39→22:00)
[2022-05-09] MEDS: OMEPRAZOLE 20MG CAPSULE EXTENDED RELEASE PO SCH (06:31)
[2022-05-09] MEDS: DOCUSATE SODIUM 100MG CAPSULE PO SCH ×2 (09:31→17:50)
[2022-05-09] MEDS: SERTRALINE HCL 50MG TABLET PO SCH (09:31)
[2022-05-09] MEDS: AMLODIPINE 2.5MG TABLET PO SCH (09:32)
[2022-05-09] MEDS: ASPIRIN 81MG EC TABLET PO SCH (09:33)
[2022-05-10] MEDS: DIPHENHYDRAMINE 50MG/ML VIAL IV PRN ×3 (03:57→22:06)
[2022-05-10 04:00] VITALS: BP 116/57
[2022-05-10] MEDS: SODIUM CHLORIDE 0.9% INJ 3ML FLUSH IVF SCH ×3 (05:33→22:00)
[2022-05-10] MEDS: OMEPRAZOLE 20MG CAPSULE EXTENDED RELEASE PO SCH (06:23)
[2022-05-10 08:00] VITALS: BP 143/72
[2022-05-10] MEDS: AMLODIPINE 2.5MG TABLET PO SCH (09:48)
[2022-05-10] MEDS: SERTRALINE HCL 50MG TABLET PO SCH (09:48)
[2022-05-10] MEDS: MORPHINE SULFATE 4 MG/ML CPJ (NOT FOR IM USE) IV PRN (09:49)
[2022-05-10] MEDS: ASPIRIN 81MG EC TABLET PO SCH (09:49)
[2022-05-10] MEDS: DOCUSATE SODIUM 100MG CAPSULE PO SCH ×2 (09:49→17:00)
[2022-05-10 11:43] VITALS: BP 114/63
[2022-05-10 16:00] VITALS: BP 118/54
[2022-05-10 20:00] VITALS: BP 96/64
[2022-05-10] MEDS: EPOETIN ALFA-EPBX 10,000 UNIT/ML VIAL SUBCUT SCH ×2 (21:00→22:06)
[2022-05-11] VITALS (7 sets, daily range): BP systolic 96–127; BP diastolic 42–69
[2022-05-11] MEDS: DIPHENHYDRAMINE 50MG/ML VIAL IV PRN ×3 (04:04→19:56)
[2022-05-11] MEDS: SODIUM CHLORIDE 0.9% INJ 3ML FLUSH IVF SCH ×3 (06:00→21:20)
[2022-05-11] MEDS: OMEPRAZOLE 20MG CAPSULE EXTENDED RELEASE PO SCH (06:49)
[2022-05-11] MEDS: ASPIRIN 81MG EC TABLET PO SCH (09:27)
[2022-05-11] MEDS: SERTRALINE HCL 50MG TABLET PO SCH (09:27)
[2022-05-11] MEDS: DOCUSATE SODIUM 100MG CAPSULE PO SCH ×2 (09:27→17:00)
[2022-05-11] MEDS: AMLODIPINE 2.5MG TABLET PO SCH (09:28)
[2022-05-11] MEDS: MORPHINE SULFATE 4 MG/ML CPJ (NOT FOR IM USE) IV PRN (11:27)
[2022-05-12] VITALS: BP 100/82
[2022-05-12] MEDS: HYDROCODONE/ACETAMINOPHEN 10/325MG TABLET PO PRN ×2 (00:14→04:05)
[2022-05-12] MEDS: MORPHINE SULFATE 4 MG/ML CPJ (NOT FOR IM USE) IV PRN (00:24)
[2022-05-12] MEDS: DIPHENHYDRAMINE 50MG/ML VIAL IV PRN ×4 (02:49→21:18)
[2022-05-12 03:54] VITALS: BP 111/70
[2022-05-12] MEDS: SODIUM CHLORIDE 0.9% INJ 3ML FLUSH IVF SCH ×3 (06:20→21:18)
[2022-05-12] MEDS: OMEPRAZOLE 20MG CAPSULE EXTENDED RELEASE PO SCH (06:21)
[2022-05-12 08:24] VITALS: BP 104/50
[2022-05-12] MEDS: AMLODIPINE 2.5MG TABLET PO SCH (09:00)
[2022-05-12] MEDS: SERTRALINE HCL 50MG TABLET PO SCH (10:03)
[2022-05-12] MEDS: DOCUSATE SODIUM 100MG CAPSULE PO SCH ×2 (10:03→17:39)
[2022-05-12] MEDS: ASPIRIN 81MG EC TABLET PO SCH (10:03)
[2022-05-12 12:11] VITALS: BP 92/50
[2022-05-12 16:00] VITALS: BP 95/40
[2022-05-12 20:00] VITALS: BP 95/65
[2022-05-13] VITALS: BP 99/67
[2022-05-13] MEDS: DIPHENHYDRAMINE 50MG/ML VIAL IV PRN ×4 (01:33→21:11)
[2022-05-13 03:56] VITALS: BP 103/63
[2022-05-13] MEDS: SODIUM CHLORIDE 0.9% INJ 3ML FLUSH IVF SCH ×3 (06:17→21:11)
[2022-05-13] MEDS: OMEPRAZOLE 20MG CAPSULE EXTENDED RELEASE PO SCH (06:20)
[2022-05-13 08:08] VITALS: BP 108/49
[2022-05-13] MEDS: AMLODIPINE 2.5MG TABLET PO SCH (09:00)
[2022-05-13] MEDS: SERTRALINE HCL 50MG TABLET PO SCH (09:12)
[2022-05-13] MEDS: ASPIRIN 81MG EC TABLET PO SCH (09:12)
[2022-05-13] MEDS: DOCUSATE SODIUM 100MG CAPSULE PO SCH ×2 (09:16→17:00)
[2022-05-13] MEDS: ACETAMINOPHEN 325MG TABLET PO PRN (09:53)
[2022-05-13 11:33] VITALS: BP 98/44
[2022-05-13 16:24] VITALS: BP 85/37
[2022-05-13 16:54] LABS: BASOPHILS % 0.6 % (0.0-2.0); EOSINOPHILS % 2.3 % (0.0-5.0); HEMATOCRIT. 24.2 % (36.0-48.0); HEMOGLOBIN. 7.7 g/dL (12.0-16.0); LYMPHOCYTES % 19.6 % (20.0-50.0); MEAN CORPUSCULAR HEMOGLOBIN 31.2 pg (28.0-32.0); MEAN CORPUSCULAR VOLUME 97.5 fL (81.0-99.0); MEAN PLATELET VOLUME 10.6 fl (7.4-10.4); MONOCYTES % 13.4 % (2.0-8.0); NEUTROPHILS % 64.1 % (40.0-76.0); PLATELET 155 x1000/uL (130-400); RED BLOOD CELL COUNT 2.48 mill/uL (4.2-5.4); RED CELL DISTRIBUTION WIDTH 21.3 % (11.6-14.6)
[2022-05-13 20:00] VITALS: BP 100/43
[2022-05-13] MEDS: EPOETIN ALFA-EPBX 10,000 UNIT/ML VIAL SUBCUT SCH (23:49)
[2022-05-14] VITALS: BP 93/40
[2022-05-14] MEDS: DIPHENHYDRAMINE 50MG/ML VIAL IV PRN ×4 (02:25→21:28)
[2022-05-14 04:00] VITALS: BP 88/40
[2022-05-14] MEDS: SODIUM CHLORIDE 0.9% INJ 3ML FLUSH IVF SCH ×3 (06:39→21:28)
[2022-05-14] MEDS: FAMOTIDINE 20MG TABLET PO SCH (06:39)
[2022-05-14 08:12] VITALS: BP 107/57
[2022-05-14] MEDS: AMLODIPINE 2.5MG TABLET PO SCH (09:00)
[2022-05-14] MEDS: SERTRALINE HCL 50MG TABLET PO SCH (10:05)
[2022-05-14] MEDS: ASPIRIN 81MG EC TABLET PO SCH (10:05)
[2022-05-14] MEDS: DOCUSATE SODIUM 100MG CAPSULE PO SCH ×2 (10:05→16:40)
[2022-05-14 12:30] VITALS: BP 95/41
[2022-05-14 16:23] VITALS: BP 99/46
[2022-05-14 20:00] VITALS: BP 110/49
[2022-05-15] VITALS: BP 111/61
[2022-05-15 04:00] VITALS: BP 97/54
[2022-05-15] MEDS: DIPHENHYDRAMINE 50MG/ML VIAL IV PRN ×3 (04:05→14:45)
[2022-05-15] MEDS: SODIUM CHLORIDE 0.9% INJ 3ML FLUSH IVF SCH (06:23)
[2022-05-15] MEDS: FAMOTIDINE 20MG TABLET PO SCH (06:24)
[2022-05-15 08:00] VITALS: BP 116/48
[2022-05-15] MEDS: AMLODIPINE 2.5MG TABLET PO SCH (09:00)
[2022-05-15] MEDS: ACETAMINOPHEN 325MG TABLET PO PRN (09:31)
[2022-05-15] MEDS: DOCUSATE SODIUM 100MG CAPSULE PO SCH (09:31)
[2022-05-15] MEDS: SERTRALINE HCL 50MG TABLET PO SCH (09:31)
[2022-05-15] MEDS: ASPIRIN 81MG EC TABLET PO SCH (09:31)
[2022-05-15 12:00] VITALS: BP 103/32
[2022-05-15 14:22] VITALS: BP 132/66
== END 2022-05-15 16:25 | disposition home or self-care (01) | DRG 640 ==
LOC: ER 18:23 → MICUSO 23:36 → 6WST 05-08 03:26
PROVIDERS: ADMIT Internal Medicine; ATTEND Internal Medicine
PROC: 05HY33Z Insertion of Infusion Device into Upper Vein, Percutaneous Approach (ICD-10-PCS; principal; 2022-05-08)
PROC: B54NZZA Ultrasonography of Left Upper Extremity Veins, Guidance (ICD-10-PCS; 2022-05-08)
PROC: B51NZZA Fluoroscopy of Left Upper Extremity Veins, Guidance (ICD-10-PCS; 2022-05-08)
PROC: 5A1D70Z Performance of Urinary Filtration, Intermittent, Less than 6 Hours Per Day (ICD-10-PCS; 2022-05-08)
PROC: 5A1D70Z Performance of Urinary Filtration, Intermittent, Less than 6 Hours Per Day (ICD-10-PCS; 2022-05-09)
PROC: 5A1D70Z Performance of Urinary Filtration, Intermittent, Less than 6 Hours Per Day (ICD-10-PCS; 2022-05-10)
PROC: 5A1D70Z Performance of Urinary Filtration, Intermittent, Less than 6 Hours Per Day (ICD-10-PCS; 2022-05-11)
PROC: 5A1D70Z Performance of Urinary Filtration, Intermittent, Less than 6 Hours Per Day (ICD-10-PCS; 2022-05-13)
PROC: 5A1D70Z Performance of Urinary Filtration, Intermittent, Less than 6 Hours Per Day (ICD-10-PCS; 2022-05-15)
DX: E87.5 Hyperkalemia (principal); L89.153 Pressure ulcer of sacral region, stage 3; N18.6 End stage renal disease; I13.2 Hypertensive heart and chronic kidney disease with heart failure and with stage 5 chronic kidney disease, or end stage renal disease; I69.354 Hemiplegia and hemiparesis following cerebral infarction affecting left non-dominant side; Z68.41 Body mass index [BMI] 40.0-44.9, adult; E66.01 Morbid (severe) obesity due to excess calories; I25.10 Atherosclerotic heart disease of native coronary artery without angina pectoris; I50.9 Heart failure, unspecified; Z96.653 Presence of artificial knee joint, bilateral; I70.202 Unspecified atherosclerosis of native arteries of extremities, left leg; H40.9 Unspecified glaucoma; Z20.822 Contact with and (suspected) exposure to COVID-19; J44.9 Chronic obstructive pulmonary disease, unspecified; M48.02 Spinal stenosis, cervical region; Z99.2 Dependence on renal dialysis; Z91.14 Patient's other noncompliance with medication regimen; Z88.1 Allergy status to other antibiotic agents; Z88.0 Allergy status to penicillin; Z88.8 Allergy status to other drugs, medicaments and biological substances; Z79.899 Other long term (current) drug therapy
CPT/HCPCS: 36415; 36573; 71045; 80048; 80053; 82040; 84134; 85025; 86705; 86709; 86803; 86850; 86900; 87340; 87426; 93005; 93970; 99291; C1725; C9803; J0885; J1200; J2270; J3490

== ENCOUNTER 2022-05-24 08:49 | Inpatient (IN) | payer BC, MEDICAID ==
[~2022-05-24] VITALS: Ht 175.3 cm; Wt 118.4 kg
[~2022-05-24 08:49] MED LIST changes: +AMLO10TA80 PO; -AMLO2.5T45 PO; -HYDR-4350 MT; -LORA2TAB2 PO; -LOXA25CA MT; -SERT100T MT; +SERT50TA PO; +TRAZ-252 PO
[2022-05-24 09:22] LABS: BASOPHILS % 0.4 % (0.0-2.0); EOSINOPHILS % 0.8 % (0.0-5.0); HEMATOCRIT. 28.9 % (36.0-48.0); LYMPHOCYTES % 12.2 % (20.0-50.0); MEAN CORPUSCULAR HEMOGLOBIN 30.6 pg (28.0-32.0); MEAN CORPUSCULAR VOLUME 98.3 fL (81.0-99.0); MEAN PLATELET VOLUME 11.5 fl (7.4-10.4); MONOCYTES % 7.5 % (2.0-8.0); NEUTROPHILS % 79.1 % (40.0-76.0); PLATELET 135 x1000/uL (130-400); RED BLOOD CELL COUNT 2.94 mill/uL (4.2-5.4); RED CELL DISTRIBUTION WIDTH 22.5 % (11.6-14.6)
[2022-05-24 09:28] LABS: CHLORIDE 103 mEq/L (98-107)
[2022-05-24 10:01] LABS: PLATELET ESTIMATE NORMAL
[2022-05-24] MEDS ORDERED: ACETAMINOPHEN 325MG TABLET PO ONE (11:00)
[2022-05-24] MEDS ORDERED: LEVOFLOXACIN 750MG PREMIX 150 ML IV ONE (13:45)
[2022-05-24] MEDS ORDERED: LIDOCAINE HCL 1% 10 MG/ML 10ML VIAL ONE (14:29)
[2022-05-24] MEDS ORDERED: LEVOFLOXACIN 500MG PREMIX 100 ML IV SCH (15:00)
[2022-05-24] MEDS ORDERED: ACETAMINOPHEN 325MG TABLET PO PRN (15:00)
[2022-05-24] MEDS ORDERED: ONDANSETRON HCL 4MG/2ML INJ IV PRN (15:00)
[2022-05-24] MEDS ORDERED: CLONIDINE 0.1MG TABLET PO PRN (15:00)
[2022-05-24] MEDS ORDERED: IPRATROPIUM/ALBUTEROL 0.5-3(2.5)MG/3ML NEB HHN PRN (15:00)
[2022-05-24 17:29] VITALS: BP 112/65
[2022-05-24 17:30] VITALS: BP 115/72
[2022-05-24 20:00] VITALS: BP 107/78
[2022-05-24 21:00] VITALS: BP 107/78
[2022-05-24] MEDS: DIPHENHYDRAMINE 50MG/ML VIAL IV PRN (21:40)
[2022-05-24] MEDS: HYDROCODONE/ACETAMINOPHEN 5/325MG TABLET PO PRN (22:58)
[2022-05-24] MEDS ORDERED: NALOXONE HCL 0.4MG/ML VIAL IV PRN (23:00)
[2022-05-25] VITALS: BP 109/87
[2022-05-25] MEDS: DIPHENHYDRAMINE 50MG/ML VIAL IV PRN ×5 (02:13→23:32)
[2022-05-25] MEDS: HYDROCODONE/ACETAMINOPHEN 5/325MG TABLET PO PRN ×2 (03:48→17:40)
[2022-05-25 04:00] VITALS: BP 105/50
[2022-05-25 08:00] VITALS: BP 107/47
[2022-05-25 11:27] LABS: BASOPHILS % 0.4 % (0.0-2.0); EOSINOPHILS % 0.7 % (0.0-5.0); HEMATOCRIT. 25.4 % (36.0-48.0); HEMOGLOBIN. 7.9 g/dL (12.0-16.0); LYMPHOCYTES % 13.6 % (20.0-50.0); MEAN CORPUSCULAR HEMOGLOBIN 30.8 pg (28.0-32.0); MEAN CORPUSCULAR VOLUME 98.6 fL (81.0-99.0); MEAN PLATELET VOLUME 11.4 fl (7.4-10.4); MONOCYTES % 7.4 % (2.0-8.0); NEUTROPHILS % 77.9 % (40.0-76.0); PLATELET 131 x1000/uL (130-400); RED BLOOD CELL COUNT 2.58 mill/uL (4.2-5.4); RED CELL DISTRIBUTION WIDTH 22.5 % (11.6-14.6)
[2022-05-25 11:31] LABS: CHLORIDE 104 mEq/L (98-107)
[2022-05-25 12:00] VITALS: BP 110/53
[2022-05-25] MEDS: FAMOTIDINE 20MG TABLET PO SCH (12:34)
[2022-05-25] MEDS: ASPIRIN 81MG EC TABLET PO SCH (12:34)
[2022-05-25] MEDS: ENOXAPARIN 40MG/0.4ML SYR SUBCUT SCH (12:34)
[2022-05-25] MEDS: CALCIUM CARBONATE 500MG TABLET CHEW PO SCH ×2 (12:35→17:40)
[2022-05-25 16:00] VITALS: BP 115/60
[2022-05-25 16:38] LABS: T4 FREE 0.74 ng/dL (0.76-1.46)
[2022-05-25] MEDS: GABAPENTIN 300MG CAPSULE PO SCH (17:40)
[2022-05-25 20:00] VITALS: BP 135/103
[2022-05-25] MEDS: EPOETIN ALFA-EPBX 10,000 UNIT/ML VIAL SUBCUT SCH (21:20)
[2022-05-25] MEDS: TRAZODONE HCL 50MG TABLET PO SCH (21:20)
[2022-05-26] VITALS: BP 106/43
[2022-05-26 04:00] VITALS: BP 116/47
[2022-05-26] MEDS: GABAPENTIN 300MG CAPSULE PO SCH ×2 (05:57→17:42)
[2022-05-26 08:00] VITALS: BP 118/57
[2022-05-26] MEDS: ENOXAPARIN 40MG/0.4ML SYR SUBCUT SCH (09:05)
[2022-05-26] MEDS: DIPHENHYDRAMINE 50MG CAPSULE PO PRN (09:06)
[2022-05-26] MEDS: ASPIRIN 81MG EC TABLET PO SCH (09:06)
[2022-05-26] MEDS: SERTRALINE HCL 50MG TABLET PO SCH (09:06)
[2022-05-26] MEDS: AMLODIPINE 10MG TABLET PO SCH (09:06)
[2022-05-26] MEDS: FAMOTIDINE 20MG TABLET PO SCH (09:06)
[2022-05-26] MEDS: CALCIUM CARBONATE 500MG TABLET CHEW PO SCH ×3 (09:06→17:42)
[2022-05-26] MEDS ORDERED: LEVOFLOXACIN 500MG PREMIX 100 ML IV SCH (11:00)
[2022-05-26] MEDS: NITROGLYCERIN OINT 1GM/INCH UDPKT TD SCH ×2 (11:41→21:13)
[2022-05-26 12:00] VITALS: BP 103/69
[2022-05-26 12:06] LABS: BASOPHILS % 0.3 % (0.0-2.0); EOSINOPHILS % 1.7 % (0.0-5.0); HEMATOCRIT. 23.1 % (36.0-48.0); HEMOGLOBIN. 7.1 g/dL (12.0-16.0); LYMPHOCYTES % 15.4 % (20.0-50.0); MEAN CORPUSCULAR HEMOGLOBIN 30.5 pg (28.0-32.0); MEAN CORPUSCULAR VOLUME 98.5 fL (81.0-99.0); MEAN PLATELET VOLUME 11.2 fl (7.4-10.4); MONOCYTES % 8.6 % (2.0-8.0); PLATELET 130 x1000/uL (130-400); RED BLOOD CELL COUNT 2.35 mill/uL (4.2-5.4); RED CELL DISTRIBUTION WIDTH 22.6 % (11.6-14.6)
[2022-05-26 12:12] LABS: CHLORIDE 106 mEq/L (98-107)
[2022-05-26 12:23] LABS: HDL CHOLESTEROL 34 mg/dL (40-59); LDL CHOLESTEROL 53 mg/dL (5-100)
[2022-05-26] MEDS: DIPHENHYDRAMINE 50MG/ML VIAL IV PRN ×2 (14:00→21:13)
[2022-05-26] MEDS ORDERED: IOHEXOL-350 100 ML BOTTLE ONE (15:56)
[2022-05-26 16:00] VITALS: BP 103/46
[2022-05-26] MEDS: POLYETHYLENE GLYCOL 3350 (17GM) 1 DOSE PACK PO SCH (18:55)
[2022-05-26 20:00] VITALS: BP 124/39
[2022-05-26] MEDS: TRAZODONE HCL 50MG TABLET PO SCH (21:13)
[2022-05-26 22:06] LABS: HEPATITIS B SURFACE ANTIGEN NEGATIVE
[2022-05-27] VITALS (23 sets, daily range): BP systolic 89–140; BP diastolic 26–91
[2022-05-27] MEDS: DIPHENHYDRAMINE 50MG/ML VIAL IV PRN ×3 (01:58→23:06)
[2022-05-27] MEDS: GABAPENTIN 300MG CAPSULE PO SCH ×2 (05:31→17:05)
[2022-05-27] MEDS: SERTRALINE HCL 50MG TABLET PO SCH (08:45)
[2022-05-27] MEDS: CALCIUM CARBONATE 500MG TABLET CHEW PO SCH ×3 (08:45→17:05)
[2022-05-27] MEDS: FAMOTIDINE 20MG TABLET PO SCH (08:45)
[2022-05-27] MEDS: ASPIRIN 81MG EC TABLET PO SCH (08:45)
[2022-05-27] MEDS: AMLODIPINE 10MG TABLET PO SCH (08:46)
[2022-05-27] MEDS: POLYETHYLENE GLYCOL 3350 (17GM) 1 DOSE PACK PO SCH (08:46)
[2022-05-27] MEDS: ENOXAPARIN 40MG/0.4ML SYR SUBCUT SCH (08:46)
[2022-05-27] MEDS: NITROGLYCERIN OINT 1GM/INCH UDPKT TD SCH ×2 (08:46→17:05)
[2022-05-27] MEDS ORDERED: LIDOCAINE HCL 1% 10 MG/ML 10ML VIAL ONE (12:18)
[2022-05-27] MEDS ORDERED: IOHEXOL-300 100 ML BOTTLE ONE (12:19)
[2022-05-27 13:12] LABS: BASOPHILS % 0.3 % (0.0-2.0); EOSINOPHILS % 2.1 % (0.0-5.0); HEMATOCRIT. 27.9 % (36.0-48.0); HEMOGLOBIN. 8.6 g/dL (12.0-16.0); LYMPHOCYTES % 18.3 % (20.0-50.0); MEAN CORPUSCULAR HEMOGLOBIN 30.6 pg (28.0-32.0); MEAN CORPUSCULAR VOLUME 99.8 fL (81.0-99.0); MEAN PLATELET VOLUME 11.1 fl (7.4-10.4); MONOCYTES % 9.9 % (2.0-8.0); NEUTROPHILS % 69.4 % (40.0-76.0); PLATELET 144 x1000/uL (130-400); RED CELL DISTRIBUTION WIDTH 22.7 % (11.6-14.6)
[2022-05-27] MEDS ORDERED: FENTANYL CITRATE/PF 50MCG/ML 2ML VIAL ONE (13:18)
[2022-05-27 13:24] LABS: INR 1.1; PROTHROMBIN TIME 11.3 sec (9.6-11.0)
[2022-05-27] MEDS ORDERED: ALTEPLASE 2MG/VIAL ITC NR (13:30)
[2022-05-27] MEDS ORDERED: FENTANYL CITRATE/PF 50MCG/ML 2ML VIAL IV ONE (14:15)
[2022-05-27] MEDS: TRAZODONE HCL 50MG TABLET PO SCH (20:20)
[2022-05-27] MEDS: HYDROCODONE/ACETAMINOPHEN 5/325MG TABLET PO PRN (20:20)
[2022-05-28] VITALS (7 sets, daily range): BP systolic 97–148; BP diastolic 54–85
[2022-05-28] MEDS: GABAPENTIN 300MG CAPSULE PO SCH ×2 (06:34→17:36)
[2022-05-28] MEDS: DIPHENHYDRAMINE 50MG/ML VIAL IV PRN ×2 (06:35→20:39)
[2022-05-28] MEDS: POLYETHYLENE GLYCOL 3350 (17GM) 1 DOSE PACK PO SCH (08:21)
[2022-05-28] MEDS: SERTRALINE HCL 50MG TABLET PO SCH (08:22)
[2022-05-28] MEDS: FAMOTIDINE 20MG TABLET PO SCH (08:22)
[2022-05-28] MEDS: CALCIUM CARBONATE 500MG TABLET CHEW PO SCH ×3 (08:22→17:36)
[2022-05-28] MEDS: NITROGLYCERIN OINT 1GM/INCH UDPKT TD SCH ×2 (08:22→17:36)
[2022-05-28] MEDS: AMLODIPINE 10MG TABLET PO SCH (08:22)
[2022-05-28] MEDS: ENOXAPARIN 40MG/0.4ML SYR SUBCUT SCH (08:27)
[2022-05-28 09:36] LABS: BASOPHILS % 0.5 % (0.0-2.0); EOSINOPHILS % 1.6 % (0.0-5.0); HEMOGLOBIN. 8.1 g/dL (12.0-16.0); LYMPHOCYTES % 17.3 % (20.0-50.0); MEAN CORPUSCULAR HEMOGLOBIN 30.7 pg (28.0-32.0); MEAN CORPUSCULAR VOLUME 101.6 fL (81.0-99.0); MEAN PLATELET VOLUME 11.1 fl (7.4-10.4); MONOCYTES % 12.5 % (2.0-8.0); NEUTROPHILS % 68.1 % (40.0-76.0); PLATELET 136 x1000/uL (130-400); RED BLOOD CELL COUNT 2.65 mill/uL (4.2-5.4); RED CELL DISTRIBUTION WIDTH 23.5 % (11.6-14.6)
[2022-05-28] MEDS: HYDROCODONE/ACETAMINOPHEN 5/325MG TABLET PO PRN ×2 (13:05→17:37)
[2022-05-28] MEDS: DIPHENHYDRAMINE 50MG CAPSULE PO PRN (13:58)
[2022-05-28] MEDS: TRAZODONE HCL 50MG TABLET PO SCH (20:39)
[2022-05-28] MEDS: EPOETIN ALFA-EPBX 10,000 UNIT/ML VIAL SUBCUT SCH (20:39)
== END 2022-05-28 23:40 | disposition home or self-care (01) | DRG 252 ==
LOC: ER 08:49 → 7WST 14:42 → EDBEDREQTM 14:54 → EDBEDREQ 14:54 → ENRESERV 15:29
PROVIDERS: ADMIT Internal Medicine; ATTEND Internal Medicine
PROC: 05HY33Z Insertion of Infusion Device into Upper Vein, Percutaneous Approach (ICD-10-PCS; 2022-05-24)
PROC: B54NZZA Ultrasonography of Left Upper Extremity Veins, Guidance (ICD-10-PCS; 2022-05-24)
PROC: B51NZZA Fluoroscopy of Left Upper Extremity Veins, Guidance (ICD-10-PCS; 2022-05-24)
PROC: 5A1D70Z Performance of Urinary Filtration, Intermittent, Less than 6 Hours Per Day (ICD-10-PCS; 2022-05-25)
PROC: 03WY3JZ Revision of Synthetic Substitute in Upper Artery, Percutaneous Approach (ICD-10-PCS; principal; 2022-05-27)
PROC: 05WY3JZ Revision of Synthetic Substitute in Upper Vein, Percutaneous Approach (ICD-10-PCS; 2022-05-27)
PROC: 3E03317 Introduction of Other Thrombolytic into Peripheral Vein, Percutaneous Approach (ICD-10-PCS; 2022-05-27)
PROC: 3E05317 Introduction of Other Thrombolytic into Peripheral Artery, Percutaneous Approach (ICD-10-PCS; 2022-05-27)
PROC: 5A1D70Z Performance of Urinary Filtration, Intermittent, Less than 6 Hours Per Day (ICD-10-PCS; 2022-05-27)
DX: E11.52 Type 2 diabetes mellitus with diabetic peripheral angiopathy with gangrene (principal); N18.6 End stage renal disease; T82.838A Hemorrhage due to vascular prosthetic devices, implants and grafts, initial encounter; I70.262 Atherosclerosis of native arteries of extremities with gangrene, left leg; I13.2 Hypertensive heart and chronic kidney disease with heart failure and with stage 5 chronic kidney disease, or end stage renal disease; I50.20 Unspecified systolic (congestive) heart failure; T82.858A Stenosis of other vascular prosthetic devices, implants and grafts, initial encounter; I69.354 Hemiplegia and hemiparesis following cerebral infarction affecting left non-dominant side; E11.621 Type 2 diabetes mellitus with foot ulcer; L97.529 Non-pressure chronic ulcer of other part of left foot with unspecified severity; E66.9 Obesity, unspecified; D63.8 Anemia in other chronic diseases classified elsewhere; E11.22 Type 2 diabetes mellitus with diabetic chronic kidney disease; I25.10 Atherosclerotic heart disease of native coronary artery without angina pectoris; E87.5 Hyperkalemia; H54.8 Legal blindness, as defined in USA; J44.9 Chronic obstructive pulmonary disease, unspecified; K21.9 Gastro-esophageal reflux disease without esophagitis; E78.5 Hyperlipidemia, unspecified; F20.9 Schizophrenia, unspecified; Z20.822 Contact with and (suspected) exposure to COVID-19; E11.42 Type 2 diabetes mellitus with diabetic polyneuropathy; Y83.2 Surgical operation with anastomosis, bypass or graft as the cause of abnormal reaction of the patient, or of later complication, without mention of misadventure at the time of the procedure; Z99.2 Dependence on renal dialysis; I25.2 Old myocardial infarction; Z87.892 Personal history of anaphylaxis; Z79.82 Long term (current) use of aspirin; Z88.0 Allergy status to penicillin; Z88.8 Allergy status to other drugs, medicaments and biological substances; Z74.01 Bed confinement status; Y92.89 Other specified places as the place of occurrence of the external cause; Z79.899 Other long term (current) drug therapy
CPT/HCPCS: 36415; 36573; 36902; 71045; 73630; 75635; 76937; 80048; 80053; 80061; 83036; 83735; 84439; 84443; 84481; 84484; 85025; 85379; 86705; 86709; 86803; 87340; 87426; 93005; 93970; 99152; 99153; 99285; C1725; C1769; C1887; C9803; J0885; J1200; J1644; J1650; J1956; J2997; J3010; J3490; Q0163; Q9967; G0500